=== PATIENT | male | born 1955 | race Caucasian/White ===

== ENCOUNTER 2019-05-09 02:35 | Inpatient (IN) ==
[2019-05-09] MEDS ORDERED: *HR* LORazepam 2 MG/ML VIAL IVP ONE ×2 (02:57→08:45)
[2019-05-09] MEDS ORDERED: Ondansetron 4 MG/2 ML VIAL IVP ONE (02:57)
[2019-05-09] MEDS ORDERED: 0.9 % Sodium Chloride 1,000 ML IVC ONE ×2 (02:57→08:02)
[2019-05-09 03:58] LABS: Basophils # 0.1 K/mcL (0.0-0.2); Basophils % 0.7 %; Eosinophils # 0.2 K/mcL (0.0-0.6); Eosinophils % 1.6 %; Hematocrit 35.9 % (37.5-50.1); INR 1.2; Lymphocytes # 0.7 K/mcL (0.6-4.6); Lymphocytes % 5.1 %; Mean Corpuscular HGB Conc 33.4 g/dL (31.6-35.5); Mean Corpuscular Hemoglobin 28.9 pg (28.0-33.3); Mean Corpuscular Volume 86.5 fL (83.0-100.0); Mean Platelet Volume 7.8 fL (9.4-12.4); Monocytes # 0.6 K/mcL (0.0-1.3); Monocytes % 4.7 %; Neutrophils # 11.6 K/mcL (1.6-8.9); Platelet Count 601 K/mcL (140-400); Prothrombin Time 13.3 Seconds (9.4-12.1); Red Blood Count 4.15 M/mcL (4.19-5.50); Red Cell Distribution Width 13.3 % (11.5-14.5); Segmented Neutrophils % 86.9 %; White Blood Count 13.3 K/mcL (4.3-11.1)
[2019-05-09 04:01] LABS: Activated Partial Thrombo Time 35.8 Seconds (26.0-36.0)
[2019-05-09 04:05] LABS: Alanine Aminotransferase 27 Units/L (7-52); Albumin 3.1 g/dL (3.5-5.7); Albumin/Globulin Ratio 0.9 (1.1-2.2); Alkaline Phosphatase 129 Units/L (34-104); Amylase 47 Units/L (29-103); Aspartate Amino Transferase 16 Units/L (13-39); BUN/Creatinine Ratio 28 (6-26); Bilirubin,Direct 0.1 mg/dL (0.0-0.2); Bilirubin,Indirect 0.2 mg/dL (0.0-1.0); Bilirubin,Total 0.3 mg/dL (0.3-1.0); Blood Urea Nitrogen 19 mg/dL (8-23); Calcium 8.6 mg/dL (8.6-10.3); Carbon Dioxide 25 mEq/L (23-29); Chloride 101 mEq/L (98-107); Globulin 3.5 g/dL (2.4-3.5); Glucose 141 mg/dL (70-105); Lipase 32 Units/L (11-82); Osmolality,Calculated 283 (280-300); Potassium 4.2 mEq/L (3.5-5.1); Sodium 134 mEq/L (136-145); Total Protein 6.6 g/dL (6.4-8.9); Troponin I < 0.03 ng/mL (< 0.04); eGFR For African Americans > 60 (> 60); eGFR For Non-African Americans > 60 (> 60)
[2019-05-09] MEDS ORDERED: Isovue-370 500 ML BOTTLE IVP ONE (04:09)
[2019-05-09 07:32] LABS: Bilirubin,Urine Negative (Negative); Blood,Urine Negative (Negative); Clarity,Urine Clear (Clear); Color,Urine Yellow (Yellow); Glucose,Urine (UA) Normal (Normal); Ketones,Urine Negative (Negative); Leukocyte Esterase,Urine Negative (Negative); Nitrite,Urine Negative (Negative); Protein,Urine Negative (Neg-Trace); Specific Gravity,Urine > 1.030 (1.010-1.025); Urobilinogen,Urine Normal (Normal)
[2019-05-09] MEDS ORDERED: levoFLOXacin 750 MG/150 ML 750 MG/150 ML BAG IVPB ONE (08:03)
[2019-05-09] MEDS ORDERED: *HR* HYDROmorphone (PF) 1 MG/ML SYRINGE IVP ONE (08:45)
[2019-05-09] MEDS ORDERED: Metoclopramide 10 MG/2 ML VIAL IVP ONE (08:45)
[2019-05-09] MEDS ORDERED: Naloxone 0.4 MG/ML INJ IVP PRN (09:34)
[2019-05-09] MEDS ORDERED: Acetaminophen 325 MG TABLET PO PRN (09:34)
[2019-05-09] MEDS ORDERED: Dextrose Gel 15 GM/37.5 ML TUBE PO PRN ×2 (09:38)
[2019-05-09] MEDS ORDERED: D5% in Water 1,000 ML IVC PRN (09:38)
[2019-05-09] MEDS ORDERED: *HR* Dextrose 50 % in Water (Syg) 50 ML SYRINGE IVP PRN (09:38)
[2019-05-09] MEDS ORDERED: D5% in 0.9% NACL 1,000 ML IVC SCH (09:45)
[2019-05-09] MEDS: Ondansetron 4 MG/2 ML VIAL IVP PRN (10:30)
[2019-05-09] MEDS: Ipratropium/Albuterol Neb 3 ML IH SCH ×4 (10:55→23:32)
[2019-05-09] MEDS: MetroNIDAZOLE 500 MG/100 ML 500 MG/100 ML BAG IVPB SCH ×2 (12:28→14:10)
[2019-05-09] MEDS: Insulin LISPRO 300 UNITS/3 ML VIAL SQ SCH ×2 (12:29→18:44)
[2019-05-09] MEDS: D5% in 0.9% NACL 1,000 ML IVC SCH (14:09)
[2019-05-09] MEDS: *HR* Heparin 5,000 UNIT/ML VIAL SQ SCH ×2 (14:10→22:15)
[2019-05-09] MEDS ORDERED: *HR* Promethazine 25 MG/ML VIAL IVP PRN (15:42)
[2019-05-09] MEDS: MethylPREDNISolone 40 MG/ML VIAL IVP SCH (17:29)
[2019-05-09] MEDS ORDERED: *HR* LORazepam Oral Conc 2 MG/ML SL ONE (22:40)
[2019-05-10] MEDS: Insulin LISPRO 300 UNITS/3 ML VIAL SQ SCH ×4 (00:32→18:05)
[2019-05-10 02:09] LABS: Basophils % 0.1 %; Eosinophils % 0.1 %; Hematocrit 38.6 % (37.5-50.1); Hemoglobin 12.9 g/dL (12.9-16.9); Immature Granulocytes % 0.5 % (0-4); Lymphocytes # 0.5 K/mcL (0.6-4.6); Mean Corpuscular HGB Conc 33.4 g/dL (31.6-35.5); Mean Corpuscular Hemoglobin 29.3 pg (28.0-33.3); Mean Corpuscular Volume 87.5 fL (83.0-100.0); Mean Platelet Volume 8.2 fL (9.4-12.4); Monocytes # 0.4 K/mcL (0.0-1.3); Monocytes % 3.1 %; Neutrophils # 11.8 K/mcL (1.6-8.9); Platelet Count 601 K/mcL (140-400); Red Blood Count 4.41 M/mcL (4.19-5.50); Red Cell Distribution Width 13.3 % (11.5-14.5); Segmented Neutrophils % 92.2 %; White Blood Count 12.8 K/mcL (4.3-11.1)
[2019-05-10 02:36] LABS: Alanine Aminotransferase 22 Units/L (7-52); Albumin 3.4 g/dL (3.5-5.7); Alkaline Phosphatase 129 Units/L (34-104); Aspartate Amino Transferase 12 Units/L (13-39); BUN/Creatinine Ratio 26 (6-26); Bilirubin,Total 0.4 mg/dL (0.3-1.0); Blood Urea Nitrogen 20 mg/dL (8-23); Calcium 9.3 mg/dL (8.6-10.3); Carbon Dioxide 28 mEq/L (23-29); Chloride 98 mEq/L (98-107); Globulin 3.5 g/dL (2.4-3.5); Glucose 180 mg/dL (70-105); Magnesium 2.1 mg/dL (1.6-2.6); Osmolality,Calculated 291 (280-300); Phosphorous 3.9 mg/dL (2.7-4.5); Potassium 3.6 mEq/L (3.5-5.1); Sodium 137 mEq/L (136-145); Total Protein 6.9 g/dL (6.4-8.9); eGFR For African Americans > 60 (> 60); eGFR For Non-African Americans > 60 (> 60)
[2019-05-10] MEDS: Ipratropium/Albuterol Neb 3 ML IH SCH ×6 (04:14→23:29)
[2019-05-10] MEDS: D5% in 0.9% NACL 1,000 ML IVC SCH ×2 (04:52→19:31)
[2019-05-10] MEDS: *HR* Heparin 5,000 UNIT/ML VIAL SQ SCH ×3 (05:59→22:37)
[2019-05-10] MEDS: MethylPREDNISolone 40 MG/ML VIAL IVP SCH ×2 (05:59→17:20)
[2019-05-10] MEDS: levoFLOXacin 750 MG/150 ML 750 MG/150 ML BAG IVPB SCH (08:09)
[2019-05-10] MEDS: Pantoprazole 40 MG VIAL IVP SCH (08:10)
[2019-05-10] MEDS: Ondansetron 4 MG/2 ML VIAL IVP PRN (11:57)
[2019-05-10] MEDS ORDERED: *HR* LORazepam Oral Conc 2 MG/ML SL ONE (22:01)
[2019-05-11] MEDS: Insulin LISPRO 300 UNITS/3 ML VIAL SQ SCH ×3 (01:50→11:19)
[2019-05-11] MEDS: Ipratropium/Albuterol Neb 3 ML IH SCH ×6 (04:09→23:46)
[2019-05-11] MEDS: MethylPREDNISolone 40 MG/ML VIAL IVP SCH (04:51)
[2019-05-11] MEDS: *HR* Heparin 5,000 UNIT/ML VIAL SQ SCH ×3 (04:51→21:03)
[2019-05-11] MEDS: D5% in 0.9% NACL 1,000 ML IVC SCH ×4 (04:57→20:20)
[2019-05-11] MEDS: levoFLOXacin 750 MG/150 ML 750 MG/150 ML BAG IVPB SCH (09:20)
[2019-05-11] MEDS: Pantoprazole 40 MG VIAL IVP SCH (09:20)
[2019-05-11] MEDS ORDERED: Lidocaine HCL 4 ML Topical Solution (Laryng-O-Jet Kit Sterile Pak) TP ONE (10:54)
[2019-05-11] MEDS ORDERED: *HR* Midazolam HCl 2 MG/2 ML VIAL ONE (10:56)
[2019-05-11] MEDS ORDERED: *HR* FentaNYL (PF) 100 MCG/2 ML VIAL ONE (10:56)
[2019-05-11] MEDS ORDERED: *HR* Rocuronium Bromide 50 MG/5 ML VIAL ONE (10:56)
[2019-05-11] MEDS ORDERED: Dexamethasone 4 MG/ML VIAL ONE (10:57)
[2019-05-11] MEDS ORDERED: Ondansetron 4 MG/2 ML VIAL ONE (10:57)
[2019-05-11] MEDS ORDERED: Lidocaine -MPF 2% 2 ML VIAL ONE (11:00)
[2019-05-11] MEDS ORDERED: *HR* Succinylcholine 200 MG/10 ML VIAL IVP ONE (11:03)
[2019-05-11] MEDS ORDERED: Acetaminophen IV 1,000 MG/100 ML INFUS..BTL ONE (13:41)
[2019-05-11] MEDS ORDERED: CefOXitin 1,000 MG VIAL ONE (14:16)
[2019-05-11] MEDS ORDERED: Neostigmine Methylsulfate 3 MG/3 ML SYRINGE ONE (16:25)
[2019-05-11] MEDS: *HR* HYDROmorphone (PF) 1 MG/ML SYRINGE IVP PRN ×2 (17:17→17:24)
[2019-05-11] MEDS ORDERED: *HR* Dextrose 50 % in Water (Syg) 50 ML SYRINGE IVP PRN (18:47)
[2019-05-11] MEDS ORDERED: Acetaminophen 325 MG TABLET PO PRN (18:47)
[2019-05-11] MEDS ORDERED: Dextrose Gel 15 GM/37.5 ML TUBE PO PRN ×2 (18:47)
[2019-05-11] MEDS ORDERED: D5% in Water 1,000 ML IVC PRN (18:47)
[2019-05-11] MEDS ORDERED: Ondansetron 4 MG/2 ML VIAL IVP PRN (18:47)
[2019-05-11] MEDS ORDERED: *HR* Promethazine 25 MG/ML VIAL IVP PRN (18:47)
[2019-05-11] MEDS ORDERED: Naloxone 0.4 MG/ML INJ IVP PRN (18:47)
[2019-05-11] MEDS ORDERED: Morphine Sulfate 2 MG/ML SYRINGE IVP ONE (20:30)
[2019-05-12] MEDS: Insulin LISPRO 300 UNITS/3 ML VIAL SQ SCH ×4 (00:06→17:26)
[2019-05-12] MEDS: Ipratropium/Albuterol Neb 3 ML IH SCH ×6 (03:48→23:36)
[2019-05-12 05:09] LABS: Hematocrit 37.1 % (37.5-50.1); Hemoglobin 11.6 g/dL (12.9-16.9); Mean Corpuscular HGB Conc 31.3 g/dL (31.6-35.5); Mean Corpuscular Hemoglobin 28.5 pg (28.0-33.3); Mean Corpuscular Volume 91.2 fL (83.0-100.0); Mean Platelet Volume 8.1 fL (9.4-12.4); Platelet Count 476 K/mcL (140-400); Red Blood Count 4.07 M/mcL (4.19-5.50); Red Cell Distribution Width 13.9 % (11.5-14.5)
[2019-05-12] MEDS: *HR* Heparin 5,000 UNIT/ML VIAL SQ SCH ×3 (05:28→23:25)
[2019-05-12 05:30] LABS: BUN/Creatinine Ratio 28 (6-26); Blood Urea Nitrogen 23 mg/dL (8-23); Calcium 8.5 mg/dL (8.6-10.3); Carbon Dioxide 30 mEq/L (23-29); Chloride 107 mEq/L (98-107); Glucose 136 mg/dL (70-105); Osmolality,Calculated 306 (280-300); Potassium 3.4 mEq/L (3.5-5.1); Sodium 145 mEq/L (136-145); eGFR For African Americans > 60 (> 60); eGFR For Non-African Americans > 60 (> 60)
[2019-05-12] MEDS: D5% in 0.9% NACL 1,000 ML IVC SCH (05:30)
[2019-05-12] MEDS ORDERED: MethylPREDNISolone 40 MG/ML VIAL IVP SCH (09:00)
[2019-05-12] MEDS: MethylPREDNISolone 40 MG/ML VIAL IVP SCH (09:45)
[2019-05-12] MEDS: levoFLOXacin 750 MG/150 ML 750 MG/150 ML BAG IVPB SCH (09:45)
[2019-05-12] MEDS: Pantoprazole 40 MG VIAL IVP SCH (09:46)
[2019-05-12 10:39] LABS: Magnesium 2.1 mg/dL (1.6-2.6); Phosphorous 3.4 mg/dL (2.7-4.5)
[2019-05-12] MEDS ORDERED: Lidocaine -MPF 1% 5 ML AMPUL INFILT ONE (11:42)
[2019-05-12] MEDS ORDERED: D10% in Water 500 ML IVC PRN (11:55)
[2019-05-12] MEDS: 0.9 % Sodium Chloride 1,000 ML IVC SCH (15:13)
[2019-05-12] MEDS ORDERED: Clinimix E 5%-15% SOLUTION 2,000 ML with MVI, adult with vitamin K 10 ML IVC SCH (17:00)
[2019-05-13] MEDS: Insulin LISPRO 300 UNITS/3 ML VIAL SQ SCH ×6 (00:18→20:53)
[2019-05-13] MEDS ORDERED: *HR* LORazepam 1 MG TABLET PO PRN (03:21)
[2019-05-13] MEDS ORDERED: *HR* LORazepam 2 MG/ML VIAL IVP ONE (03:29)
[2019-05-13] MEDS: Ipratropium/Albuterol Neb 3 ML IH SCH ×6 (04:37→23:56)
[2019-05-13] MEDS: 0.9 % Sodium Chloride 1,000 ML IVC SCH (04:43)
[2019-05-13 04:46] LABS: Hematocrit 33.6 % (37.5-50.1); Hemoglobin 11.2 g/dL (12.9-16.9); Mean Corpuscular HGB Conc 33.3 g/dL (31.6-35.5); Mean Corpuscular Hemoglobin 28.9 pg (28.0-33.3); Mean Corpuscular Volume 86.8 fL (83.0-100.0); Mean Platelet Volume 8.1 fL (9.4-12.4); Platelet Count 433 K/mcL (140-400); Red Blood Count 3.87 M/mcL (4.19-5.50); Red Cell Distribution Width 13.8 % (11.5-14.5)
[2019-05-13] MEDS: *HR* Heparin 5,000 UNIT/ML VIAL SQ SCH ×3 (05:07→20:57)
[2019-05-13 05:19] LABS: Magnesium 1.9 mg/dL (1.6-2.6); Phosphorous 2.7 mg/dL (2.7-4.5)
[2019-05-13 05:21] LABS: BUN/Creatinine Ratio 21 (6-26); Blood Urea Nitrogen 14 mg/dL (8-23); Calcium 8.2 mg/dL (8.6-10.3); Carbon Dioxide 26 mEq/L (23-29); Chloride 107 mEq/L (98-107); Glucose 107 mg/dL (70-105); Osmolality,Calculated 291 (280-300); Potassium 3.4 mEq/L (3.5-5.1); Sodium 140 mEq/L (136-145); eGFR For African Americans > 60 (> 60); eGFR For Non-African Americans > 60 (> 60)
[2019-05-13] MEDS: levoFLOXacin 750 MG/150 ML 750 MG/150 ML BAG IVPB SCH (08:02)
[2019-05-13] MEDS: Pantoprazole 40 MG VIAL IVP SCH (08:03)
[2019-05-13] MEDS: MethylPREDNISolone 40 MG/ML VIAL IVP SCH (08:03)
[2019-05-13] MEDS ORDERED: Clinimix E 5%-15% SOLUTION 2,000 ML with MVI, adult with vitamin K 10 ML IVC SCH (17:00)
[2019-05-13] MEDS: *HR* LORazepam 1 MG TABLET PO PRN (18:18)
[2019-05-14] MEDS: Insulin LISPRO 300 UNITS/3 ML VIAL SQ SCH ×6 (02:53→21:21)
[2019-05-14 03:48] LABS: Mean Platelet Volume 8.1 fL (9.4-12.4)
[2019-05-14 03:49] LABS: Hematocrit 32.4 % (37.5-50.1); Mean Corpuscular Volume 85.5 fL (83.0-100.0); Platelet Count 380 K/mcL (140-400); Red Blood Count 3.79 M/mcL (4.19-5.50); Red Cell Distribution Width 13.7 % (11.5-14.5); White Blood Count 9.8 K/mcL (4.3-11.1)
[2019-05-14] MEDS: Ipratropium/Albuterol Neb 3 ML IH SCH ×6 (03:54→23:16)
[2019-05-14 04:16] LABS: Hemoglobin 11.8 g/dL (12.9-16.9)
[2019-05-14 04:17] LABS: Mean Corpuscular Hemoglobin 31.1 pg (28.0-33.3)
[2019-05-14 04:18] LABS: Mean Corpuscular HGB Conc 36.4 g/dL (31.6-35.5)
[2019-05-14 05:23] LABS: BUN/Creatinine Ratio 19 (6-26); Blood Urea Nitrogen 11 mg/dL (8-23); Carbon Dioxide 26 mEq/L (23-29); Chloride 104 mEq/L (98-107); Glucose 110 mg/dL (70-105); Magnesium 1.9 mg/dL (1.6-2.6); Osmolality,Calculated 282 (280-300); Phosphorous 3.5 mg/dL (2.7-4.5); Potassium 3.3 mEq/L (3.5-5.1); Sodium 136 mEq/L (136-145); eGFR For African Americans > 60 (> 60); eGFR For Non-African Americans > 60 (> 60)
[2019-05-14] MEDS: *HR* Heparin 5,000 UNIT/ML VIAL SQ SCH ×3 (05:44→21:09)
[2019-05-14] MEDS: MethylPREDNISolone 40 MG/ML VIAL IVP SCH (08:34)
[2019-05-14] MEDS: levoFLOXacin 750 MG/150 ML 750 MG/150 ML BAG IVPB SCH (08:34)
[2019-05-14] MEDS: Pantoprazole 40 MG VIAL IVP SCH (08:34)
[2019-05-14] MEDS ORDERED: Clinimix E 5%-15% SOLUTION 2,000 ML with MVI, adult with vitamin K 10 ML IVC SCH (15:00)
[2019-05-14] MEDS: *HR* LORazepam 1 MG TABLET PO PRN (21:11)
[2019-05-15] MEDS: Ipratropium/Albuterol Neb 3 ML IH SCH ×4 (03:11→15:44)
[2019-05-15 04:52] LABS: Hematocrit 36.9 % (37.5-50.1); Hemoglobin 12.5 g/dL (12.9-16.9); Mean Corpuscular HGB Conc 33.9 g/dL (31.6-35.5); Mean Corpuscular Hemoglobin 28.9 pg (28.0-33.3); Mean Corpuscular Volume 85.4 fL (83.0-100.0); Mean Platelet Volume 8.4 fL (9.4-12.4); Platelet Count 358 K/mcL (140-400); Red Blood Count 4.32 M/mcL (4.19-5.50); Red Cell Distribution Width 13.7 % (11.5-14.5); White Blood Count 9.8 K/mcL (4.3-11.1)
[2019-05-15] MEDS: *HR* Heparin 5,000 UNIT/ML VIAL SQ SCH ×2 (04:58→15:06)
[2019-05-15 05:04] LABS: Magnesium 1.9 mg/dL (1.6-2.6); Phosphorous 3.6 mg/dL (2.7-4.5)
[2019-05-15 05:05] LABS: BUN/Creatinine Ratio 26 (6-26); Blood Urea Nitrogen 16 mg/dL (8-23); Calcium 8.3 mg/dL (8.6-10.3); Carbon Dioxide 26 mEq/L (23-29); Chloride 102 mEq/L (98-107); Glucose 99 mg/dL (70-105); Osmolality,Calculated 281 (280-300); Potassium 3.8 mEq/L (3.5-5.1); Sodium 135 mEq/L (136-145); eGFR For African Americans > 60 (> 60); eGFR For Non-African Americans > 60 (> 60)
[2019-05-15] MEDS ORDERED: levoFLOXacin 750 MG TABLET PO SCH (09:00)
[2019-05-15 11:34] VITALS: BP 127/73
== END 2019-05-15 16:16 | disposition home or self-care (01) | DRG 335 ==
LOC: CDU 02:35 → EMEROOARM 02:35 → CDU 10:20 → SUATTDRO 12:32 → 3ANU 13:39
PROVIDERS: ADMIT Internal Medicine; ATTEND Family Medicine